=== PATIENT | male | born 1945 | race Two or more races ===

== ENCOUNTER → 2022-06-21 | Outpatient (CLI) | payer MEDICARE ==
--- NOTE | 2022-06-21 13:15 | NM ---
EXAMINATION TYPE: NM gastric emptying static DATE OF EXAM: 06/21/2022 COMPARISON: NONE HISTORY: Following administration of 2 mCi Tc 99m Sulfur Colloid with 4 oz of scrambled eggs, 2 pieces of toas t, and 7 oz of water in 10 minutes, projection images of the abdomen were obtained 10 minutes post in gestion. Patient Emptying Values 1 Hour 24 % 2 Hours 54 % 3 Hours 79 % 4 Hours 96 % Gastroesophagel reflux: None IMPRESSION: Gastric emptying: Normal gastric emptying Gastroesophageal reflux: None Gastric emptying normal percentage values: 30 minutes: <70% of retention (> 30% emptying) suggests abnormally fast emptying. 60 minutes: <90% retention (>10% emptying) is normal; less than 30% retention (>70% emptying) suggest s abnormally rapid empying. 90 minutes: <65% retention (> 35% emptying) is normal. 120 minutes: <60% retention (> 40% emptying) is normal. 180 minutes: <30% retention (> 70% emptying) is normal. Gastric emptying T-1/2: Solid: The normal range is 60-105 minutes Liquid only: Normal range is 10-45 minutes. Liquid only-children: At 60 minutes, normal range is 44-58 % . Liquid only-infants: At 60 minutes, normal range is 32-64 %. Additional references: Gastric Emptying Scintigraphy [email or web address]://[email or web address]
== END | disposition home or self-care (01) ==
LOC: RADNMMAIN 06:45
PROVIDERS: ATTEND Internal Medicine Gastroenterology
DX: R14.2 Eructation (principal)
CPT/HCPCS: 78264; A9541

== ENCOUNTER → 2024-05-23 | Outpatient (CLI) | payer MEDICARE ==
[2024-05-23 13:10] LABS: African American GFR (CKD) 90 (>60 ml/min/1.73 sqM); Blood Urea Nitrogen 36 mg/dL (9-20); Non-African American GFR(CKD) 78 (>60 ml/min/1.73 sqM)
--- NOTE | 2024-05-23 14:37 | CT ---
EXAMINATION TYPE: CT abdomen pelvis w con DATE OF EXAM: 05/23/2024 COMPARISON: None HISTORY: abdominal pain CT DLP: 520.9 mGycm Automated exposure control for dose reduction was used. TECHNIQUE: Helical acquisition of images was performed from the lung bases through the pelvis. CONTRAST: Performed with Oral Contrast and with IV Contrast, patient injected with 100 mL of Isovue 370. FINDINGS: 5 mm right lower lobe pulmonary nodule otherwise the lung bases are clear. The gallbladder is normal without distention, wall thickening, pericholecystic fluid or gallstones. T here is no biliary ductal dilatation. There is no focal mass or organomegaly involving the liver, pancreas, spleen or adrenal glands. There is a small 11 mm hepatic cyst in the right lobe of the liver. There is no solid renal mass or hydronephrosis and there is homogeneous contrast enhancement of the r enal parenchyma. There are multiple large simple cortical cysts of both kidneys. There is a small 6.6 mm hyperdense cyst in the lateral mid right kidney which most likely represents a small hemorrhagic cyst. The caliber the abdominal aorta is normal is no retroperitoneal adenopathy or hemorrhage. The bowel loops are normal in caliber and there is no evidence of dilatation or obstruction. There is a large amount of stool within the colon from the cecum to the rectum. No inflammatory changes are i dentified in the bowel wall or mesentery. There is no free intraperitoneal air or fluid. No pelvic mass, free fluid, abscess or adenopathy. There is moderate prostatic hypertrophy. The osseous structures and soft tissues are intact. IMPRESSION: 1. No acute changes within the abdomen and pelvis. 2. Moderate prostatic hypertrophy 3. Large amount of stool throughout the colon but no bowel obstruction. 4. Small 6 mm hyperdense cyst of the mid right kidney most likely representing a hemorrhagic cyst. Fo llow-up CT or MRI is recommended for further evaluation. 5. 5 mm nodule in the right lung base. [facility], , 05/23/2024 2:35 PM
== END | disposition home or self-care (01) ==
LOC: RADCTMAIN 12:20
PROVIDERS: ATTEND Internal Medicine Geriatric Medicine
DX: R10.9 Unspecified abdominal pain
CPT/HCPCS: 36415; 74177; 82565; 84520